=== PATIENT | female | born 1955 | race Asian ===

== ENCOUNTER → 2020-09-07 10:38 | Outpatient (CLI) | payer OTHER, SELFPAY ==
--- NOTE | 2020-09-07 | DI.MG.S_ITS ---
BILATERAL DIGITAL SCREENING MAMMOGRAM 3D/2D WITH CAD: 09/07/2020 CLINICAL: Routine screening. Family history of breast cancer. Comparison is made to exams dated: 12/03/2018 mammogram and 11/20/2017 mammogram - [facility]. The tissue of both breasts is heterogeneously dense. This may lower the sensitivity of mammography. Current study was also evaluated with a Computer Aided Detection (CAD) system. No significant masses, calcifications, or other findings are seen in either breast. There has been no significant interval change. IMPRESSION: NEGATIVE There is no mammographic evidence of malignancy. A 1 year screening mammogram is recommended. This exam was interpreted at Station ID: [id number]. NOTE: For mammograms, a report in lay terms will be sent to the patient. Approximately 15% of breast malignancies will not be visualized mammographically. In the management of a palpable breast mass, a negative mammogram must not discourage biopsy of a clinically suspicious lesion. Electronically Signed By: Santy delacruz/homar:09/07/2020 13:04:26 letter sent: Normal Exam ACR BI-RADS Category 1: Negative [id number]
--- NOTE | 2020-09-07 | DI.MRI.S_ITS ---
PROCEDURE: MR KNEE LT WO CON INDICATIONS: OSTEOARTHRITIS LEFT KNEE TECHNIQUE: Noncontrast sagittal PD fast spin echo and T2 fast spin echo with fat saturation, sagittal 3-D FLASH with fat saturation; coronal T1 spin echo and PD fast spin echo with fat saturation, and axial PD fast spin echo with fat saturation through the knee. COMPARISON: None. FINDINGS: Image quality: Excellent. Menisci: Medial meniscal tear with macerated appearance of the posterior horn and body, with partial extrusion. Lateral meniscus intact. Cruciate ligaments: Marked thickening and intrasubstance signal changes of the anterior cruciate ligament although some intact fibers are present. This could represent partial rupture/sprain versus chronic mucoid degeneration. Posterior cruciate ligament appears intact. Medial structures: There is medial bowing of the medial collateral ligament, with mild internal signal changes and no complete rupture. There is adjacent soft tissue edema. The appearance could reflect reactive changes to medial compartment pathology, versus low-grade sprain of the MCL. Pes anserinus tendons appear grossly unremarkable. Semimembranosus tendon appears intact. Lateral structures: The lateral collateral ligament intact. Biceps femoris tendon appears intact. Popliteus tendon grossly unremarkable. Iliotibial band appears intact. Anterior structures: Quadriceps tendon intact. Marked thickening of the lateral patellofemoral ligament, with low signal appearance suggesting chronic age sprain. Patellar tendon appears intact. Hoffa's fat pad unremarkable. Bones and cartilage: No focal marrow contusion or discrete low signal fracture line. Within the medial compartment, full-thickness loss of the femoral and tibial articular cartilage. There is extensive subchondral cystic change and marrow edema. Within the lateral compartment, diffuse surface fraying of the femoral and tibial cartilage without definite focal defect. Within the patellofemoral compartment, near full thickness loss of patellar cartilage, with subchondral cystic change and edema involving the lateral facet. There is also diffuse partial-thickness loss of the femoral trochlear cartilage. Joint space: Small joint effusion. No Hdz's cyst. No specific evidence of intra-articular loose body. IMPRESSION: Macerated ill-defined tear of the medial meniscus posterior horn and body with partial extrusion. Thickening and signal changes involving the ACL, probably representing chronic mucoid degeneration versus partial rupture/sprain. Chronic appearing sprain of the lateral patellofemoral ligament. Severe degenerative joint disease as above Small joint effusion. Dictated by: Med Posada M.D. on 09/07/2020 at 12:14 Approved by: Med Posada M.D. on 09/07/2020 at 12:54
== END ==
PROVIDERS: Referring Provider Internal Medicine; Visit Provider Internal Medicine
DX: Z12.31 Encounter for screening mammogram for malignant neoplasm of breast (principal); Z80.3 Family history of malignant neoplasm of breast; M17.12 Unilateral primary osteoarthritis, left knee; S83.242A Other tear of medial meniscus, current injury, left knee, initial encounter; S76.112A Strain of left quadriceps muscle, fascia and tendon, initial encounter; M25.462 Effusion, left knee
CPT/HCPCS: 73721; 77063; 77067

== ENCOUNTER 2021-11-14 07:11 | Day surgery (SDC) | payer OTHER, SELFPAY ==
--- NOTE | 2021-11-14 | PATH_ITS ---
[facility] Accession Number: [id number] . 01 Material submitted: . PART A: colon - TRANSVERSE POLYP PART B: sigmoid colon - SIGMOID POLYP . 02 Diagnosis: A. Transverse Colon, Polyp, Biopsy: Tubular adenoma, 2 fragments. . B. Sigmoid Colon, Polyp, Biopsy: Tubular adenoma, 2 fragments. MRV 11/19/2021 1244 Local . 02 Electronically signed: . Simi Chávez MD, Pathologist NPI- [id number] . 01 Gross description: . Part A: TRANSVERSE POLYP: Received in formalin are 2 fragment(s) of fuller, soft tissue measuring 0.3 x 0.3 x 0.2 cm to 0.3 x 0.2 x 0.2 cm submitted entirely in 1 cassette(s) Part B: SIGMOID POLYP: Received in formalin are 2 fragment(s) of fuller, soft tissue measuring 0.7 x 0.4 x 0.3 cm to 0.5 x 0.6 x 0.3 cm submitted entirely in 1 cassette(s) /CPE 11/15/2021 0750 Local . 02 Pathologist provided ICD-10: D12.3, D12.5 . 02 CPT . 957646, 201578 Specimen Comment: A courtesy copy of this report has been sent to Pathology Performed at: 01 [facility] [address] [facility], [place], [place] [id number] MD Austin Flanagan MD Phone: [phone] Performed at: 02 [facility] [address] [place], [place] [id number] MD Simi Chávez MD Phone: [phone]
[2021-11-14 07:51] LABS: COVID19 -Nasal RAPID Negative (Negative)
[2021-11-14 07:58] VITALS: BMI 24.1
[2021-11-14 08:14] VITALS: BP 138/66; PULSE 57; RESP 14; TEMP 36.6; O2SAT 100
[2021-11-14] MEDS: LACTATED RINGERS 1,000 ML 84 ML IV (08:18)
--- NOTE | 2021-11-14 08:23 | PM.HP.1 ---
History of Present Illness History of Present Illness Date Patient Seen: 11/14/21 Chief complaint: SCREENING COLONOSCOPY Narrative: Screening colonoscopy. Last colonoscopy 10 years ago. No symptoms Patient History Medical History (Updated 11/14/21 @ 07:57 by Oriana Nguyen RN) Diabetes mellitus, type II Hypercholesteremia Hypertension Surgical History (Updated 11/14/21 @ 07:58 by Oriana Nguyen RN) History of hysterectomy Hx laparoscopic cholecystectomy Family & Social History Social History: household members spouse Tobacco & Substance use: Smoking Status Never smoker alcohol intake never Substance Use Type does not use Meds Home Medications and Allergies Home Medications Medication Instructions Recorded Confirmed Type aspirin 81 mg tablet,delayed 81 mg PO DAILY 11/14/21 11/14/21 History release calcium carb-ergocalciferol (vit 1 tab PO BID 11/14/21 11/14/21 History D2) 600 mg calcium-200 unit tablet glipizide 5 mg tablet 5 mg PO DAILY 11/14/21 11/14/21 History levothyroxine 112 mcg tablet 112 mcg PO DAILY 11/14/21 11/14/21 History (Synthroid) lisinopril 2.5 mg tablet 2.5 mg PO DAILY 11/14/21 11/14/21 History loratadine 10 mg tablet 10 mg PO DAILY PRN 11/14/21 11/14/21 History simvastatin 20 mg tablet 20 mg PO BEDTIME 11/14/21 11/14/21 History sitagliptin 50 mg-metformin 1,000 1 tab PO BID 11/14/21 11/14/21 History mg tablet (Janumet) Allergies Allergy/AdvReac Type Severity Reaction Status Date / Time erythromycin base Allergy Mild Hives Verified 11/14/21 07:50 Exam Vital Signs (past 8 hours): - 11/14/21 08:14 Temperature 97.8 F Pulse Rate 57 L Respiratory Rate 14 Blood Pressure 138/66 Pulse Oximetry 100 Oxygen Delivery Method Room Air Narrative Exam Narrative: Oropharynx free of lesions Chest clear to auscultation percussion Cardiac exam reveals no S3 or murmur Objective Labs Labs: Laboratory Results - last 24 hr 11/14/21 07:18 SARS-CoV-2 (PCR) Negative Assessment & Plan Assessment & Plan narrative: Need for screening colonoscopy. Risks, benefits, alternatives have been explained. Further recommendation will follow the results of this study. Time Spent With Patient Critical Care time: I spent a total of [] minutes of critical care time on this patient's care today; this time is exclusive of procedural time.
--- NOTE | 2021-11-14 08:24 | P.OP.COLON_ITS ---
Operative Date/Time/Diagnoses Date of procedure: 11/14/21 Pre-op diagnosis: See indication and findings Procedure & Clinicians Study performed: Colonoscopy Indications: Screening Surgeon: Luana Orellana Procedure Notes Procedure in detail: After informed consent was obtained the patient was placed in left lateral d ecubitus position. The video colonoscope was introduced the rectum slowly advanced cecum. On slow withdrawal mucosa was carefully examined. Preparation was good. The scope was removed. The patient tolerated the procedure well. Blood loss none Complications none Sedation mac Findings 1. 6 mm polyp in the proximal transverse colon cold snared and removed completely 2. 7 mm sessile polyp in the sigmoid colon. Attempts to cold snare were incomplete and therefore this was hooked up to cautery and specimen resected and retrieved. 3. Scattered rare diverticular disease 4. Otherwise negative colonoscopy to cecum Patient should have follow-up colonoscopy based on the pathology but probably will be 5 years.
[2021-11-14 08:56] VITALS: BP 94/49; PULSE 48; RESP 12; TEMP 36.1; O2SAT 97
[2021-11-14 09:01] VITALS: BP 115/56; PULSE 50; RESP 12; O2SAT 97
[2021-11-14 09:06] VITALS: BP 125/58; PULSE 50; RESP 16; O2SAT 100
[2021-11-14 09:11] VITALS: BP 125/55; PULSE 51; RESP 14; TEMP 36.8; O2SAT 100
[2021-11-14 09:16] VITALS: BP 144/63; PULSE 50; PULSE 51; RESP 14; RESP 15; O2SAT 100
--- NOTE | 2021-11-14 09:32 | SUR.PHASEII ---
discharge instructions reviewed with pt and she verbalized understanding.
== END 2021-11-14 09:45 | disposition home or self-care (01) ==
PROVIDERS: PCP Internal Medicine; Referring Provider Internal Medicine Gastroenterology; Visit Provider Internal Medicine Gastroenterology
PROC: 0DJD8ZZ Inspection of Lower Intestinal Tract, Via Natural or Artificial Opening Endoscopic (ICD-10-PCS; CPT 45378; principal; 2021-11-14 08:30)
DX: Z12.11 Encounter for screening for malignant neoplasm of colon (principal); E11.9 Type 2 diabetes mellitus without complications; Z20.822 Contact with and (suspected) exposure to COVID-19; Z79.84 Long term (current) use of oral hypoglycemic drugs; I10 Essential (primary) hypertension; K57.30 Diverticulosis of large intestine without perforation or abscess without bleeding; D12.3 Benign neoplasm of transverse colon; D12.5 Benign neoplasm of sigmoid colon
CPT/HCPCS: 45385; 45384; 87635; C9803; J2704

== ENCOUNTER 2022-09-03 22:10 | Emergency (ER) | payer MEDICARE, OTHER, SELFPAY ==
[2022-09-03 22:23] VITALS: BP 180/72; PULSE 79; RESP 19; TEMP 36.6; O2SAT 98; BMI 23.2
[2022-09-04] VITALS (9 sets, daily range): BP systolic 146–197; BP diastolic 66–76; PULSE 57–68; O2SAT 97–100
--- NOTE | 2022-09-04 03:21 | ED.BACK ---
HPI - Back Pain/Injury General Chief Complaint: Back Pain/Injury Stated Complaint: was on couch, started shaking Time Seen by Provider: 09/04/22 03:21 Source: patient History of Present Illness HPI Narrative: 67-year-old woman with a history of diabetes, hypertension, hyperlipidemia, hypothyroidism who presents with low back and pelvic pain that has been bothering her for well over a week. She was seen at [facility] on August 18 with complaints of urinary frequency. She is post hysterectomy, describes no dysuria or flank pain. No nausea vomiting or diarrhea. With the emergency room visit on the she was found to be hyponatremic with a sodium of 124. She does note that she was exercising and drinking very large volumes of water. She was placed on sodium tablets and followed up with her primary care doctor. Sodium had improved into the 130 range. He felt that her caffeine consumption in the form of coffee and large volumes of water were contributing to her urinary frequency and recommended that she cut down on total volumes and placed her on Detrol. She did this but is still having significant low back pain radiating into her pelvis. This evening it was so bad that she was actually spasming secondary to the pain. She ended up taking 500 mg of Naprosyn and is found that this is significantly relieved her pain by the time of my exam. She reports no recent trauma and no prior issues with chronic back pain. Related Data Home Medications Medication Instructions Recorded Confirmed aspirin 81 mg tablet,delayed 81 mg PO DAILY 11/14/21 09/03/22 release calcium carb-ergocalciferol (vit 1 tab PO BID 11/14/21 09/03/22 D2) 600 mg calcium-200 unit tablet levothyroxine 112 mcg tablet 112 mcg PO DAILY 11/14/21 09/03/22 (Synthroid) losartan 25 mg tablet 12.5 mg PO DAILY 09/03/22 09/03/22 rosuvastatin 20 mg tablet 20 mg PO BEDTIME 09/03/22 09/03/22 sitagliptin phosphate 50 1,000 tab PO BID 09/03/22 09/03/22 mg-metformin 1,000 mg tablet (Janumet) Allergies Allergy/AdvReac Type Severity Reaction Status Date / Time erythromycin base Allergy Mild Hives Verified 09/03/22 22:27 Review of Systems Review of Systems Narrative: Remainder of complete review of systems is otherwise unremarkable except for that included in the HPI. Patient History Medical History (Updated 09/04/22 @ 06:38 by Lizbeth Bui MD) Diabetes mellitus, type II Hypercholesteremia Hypertension Surgical History (Updated 11/14/21 @ 07:58 by Oriana Nguyen RN) History of hysterectomy Hx laparoscopic cholecystectomy Social History household members: spouse Smoking Status: Never smoker alcohol intake: never Smoking Status: Never smoker alcohol intake frequency: other Substance Use Type: does not use Exam Initial Vital Signs Initial Vital Signs: Vital Signs Temperature 98 F 09/03/22 22:23 Pulse Rate 79 09/03/22 22:23 Respiratory Rate 19 09/03/22 22:23 Blood Pressure 180/72 H 09/03/22 22:23 Pulse Oximetry 98 09/03/22 22:23 Oxygen Delivery Method 09/03/22 22:23 General: Healthy appearing, in no acute distress. Able to give a complete and coherent history. Well-nourished well-developed HEENT: Moist mucous membranes, normal sclera with reactive pupils, Respiratory: Lungs are clear to auscultation, no wheezing no rales no rhonchi. Full and symmetrical air movement Cardiac: Regular rate and rhythm no murmurs no bruits Abdomen: Soft, nontender, good bowel tones, no flank pain. Skin: Warm and dry, no rashes Neurologic: Grossly neurologically intact with no obvious asymmetries or abnormalities Extremities: No trauma, well perfused Psych: Cooperative, appropriate insight and affect Course Orders Ordered: ED Orders 09/04/22 03:38 Urine Culture Stat Urine Microscopic Stat 09/04/22 03:53 Complete Blood Count AUTO DIFF Stat Comprehensive Metabolic Panel Stat Vital Signs Vital signs: Vital Signs - 8 hr 09/04/22 01:54 09/04/22 01:55 09/04/22 01:55 Pulse Rate 66 Blood Pressure 197/76 H Pulse Oximetry 97 100 Oxygen Delivery Method Room Air Room Air 09/04/22 02:00 09/04/22 02:30 09/04/22 03:00 Pulse Rate 61 57 L 59 L Blood Pressure Pulse Oximetry 100 99 99 Oxygen Delivery Method Room Air Room Air 09/04/22 03:30 09/04/22 03:31 09/04/22 03:49 Pulse Rate 68 65 61 Blood Pressure Pulse Oximetry 100 100 100 Oxygen Delivery Method Room Air Room Air 09/04/22 03:50 09/04/22 03:50 Pulse Rate 59 L Blood Pressure 146/66 H Pulse Oximetry Oxygen Delivery Method MDM - Back Pain/Injury Lab Data 09/04/22 03:53 09/04/22 03:53 Labs: Lab Results 09/04/22 09/04/22 09/04/22 Range/Units 03:38 03:53 03:53 WBC 9.8 (4.5-11.0) X10^3/uL RBC 4.40 (4.0-5.2) X10^6/uL Hgb 12.5 (12.0-16.0) g/dL Hct 37.3 (36-46) % MCV 84.8 (80-100) fL MCH 28.3 (26-34) PG MCHC 33.4 (30-36) % RDW 13.3 (11.6-14.8) % Plt Count 267 (150-400) X10^3/uL Neut % (Auto) 62.0 (50-75) % Lymph % (Auto) 26.9 (25-40) % [place]imer % (Auto) 6.9 (3-14) % Eos % (Auto) 3.5 (2-4) % Baso % (Auto) 0.7 (0-2) % Neut # (Auto) 6100 (6670-4252) /uL Lymph # (Auto) 2700 (4778-0750) /uL Larimer # (Auto) 700 (0-900) /uL Eos # (Auto) 300 (0-450) /uL Baso # (Auto) 100 (0-100) /uL Sodium 137 (137-145) mmol/L Potassium 4.1 (3.4-5.1) mmol/L Chloride 95 L (98-107) mmol/L Carbon Dioxide 31 (22-32) mmol/L BUN 14 (7-17) mg/dL Creatinine 0.64 (0.52-1.04) mg/dL Estimated GFR > 60 (>60) mL/min BUN/Creatinine Ratio 21.9 (6-22) Glucose 166 H (80-110) mg/dL Calcium 9.7 (8.4-10.2) mg/dL Total Bilirubin 0.3 (0.2-1.3) mg/dL AST 30 (14-36) IU/L ALT 30 (<35) IU/L Alkaline Phosphatase 95 (38-126) U/L Total Protein 8.3 H (6.3-8.2) g/dL Albumin 4.3 (3.5-5.0) g/dL Globulin 4.0 (1.7-4.1) g/dL Albumin/Globulin Ratio 1.1 (1.0-2.8) Urine RBC 0-1/hpf (0-5/HPF) Urine WBC 1-5/hpf (0-5/HPF) Ur Squamous Epith Cells 5-10 /hpf H (0-5/HPF) Urine Bacteria Few (2-10) H (None) Urine Mucus 1+ H (Negative) Ur Culture Indicated? Specimen cultured Urine Dip Bedside Urine Glucose Negative Bedside Urine Bilirubin - Negative Bedside Urine Ketone - Negative Urine Specific Rock 1.015 Bedside Urine Occult Blood - Negative Bedside Urine pH 6.0 Bedside Urine Protein - Negative Bedside Urine Urobilinogen - Negative Bedside Urine Nitrite - Negative Bedside Urine Leukocytes +/- 15 Esterase MDM Narrative Medical decision making narrative: CC: Back in pelvic pain: acute exacerbation of prior diagnosis with no definitive diagnosis and uncertain prognosis Complicating co-morbidities: Diabetes, prior history of bladder spasm, large volume water and coffee consumption Corroborating data: Data collected from: patient, Medical records reviewed: Recent ER notes from [facility] are reviewed Differential considered: Acute back pain, interstitial cystitis, urinary tract infection, intra-abdominal infection. She does not have a uterus so pelvic inflammatory disease or uterine pathology is far less likely. I do not suspect acute appendicitis or diverticulitis. Complication of medications perhaps causing increased spasm. Exam documented above, pertinent findings include: Benign exam with no significant abdominal pain and back pain controlled after taking Naprosyn Lab Test results independently reviewed as above. Pertinent findings: Normal CBC Normal chemistries Re-evaluations: On re-evaluation, patient notes that the Naprosyn does continue to help. Reviewed all findings of lab work. Also discussed the possibility of interstitial cystitis as an explanation for her pelvic pain and bladder discomfort. I suggested that she continue with the Detrol as prescribed but when she sees her primary provider the next visit if she is still having symptoms to at least bring up the idea of interstitial cystitis and see if he feels like a Urology consult may be of any benefit. Her urine had leukocytes and squamous cells will be cultured but at this time I do not think that she has a bladder infection and antibiotics will not be prescribed. Questions are answered and she is safe for discharge home Disposition: see below, along with detailed discharge instructions that have been reviewed with patient as well as indications for ED re-evaluation and additional outpatient follow up Discharge Plan Departure Patient Disposition: Home Clinical Impression: Bladder spasm Strain of lumbar region Qualifiers: Encounter type: initial encounter Qualified Code(s): S39.012A - Strain of muscle, fascia and tendon of lower back, initial encounter Instructions: DI for Interstitial Cystitis, DI for Back Strain or Sprain Activity Restrictions/Additional Instructions: Thank you for coming in this evening Your blood work was quite reassuring. Your urine has been cultured and if it does look like you have a bladder infection we will contact you with antibiotics. I do not think that you have a bladder infection at this time. I think that the back pain is mild low back strain and using Naprosyn is going to be the most appropriate treatment for this. If it continues to worsen I would encourage you to follow up with your primary care doctor. Regarding the bladder spasms, I believe Detrol is very appropriate 1st step. Possibility of interstitial cystitis did cross my mind. If you are continuing to have pelvic cramping I would encourage you to discuss interstitial cystitis is a diagnosis with your regular doctor. If you find that you are getting worse or develop any new symptoms, please feel free to return to the emergency department for further evaluation. Prescriptions: No Action losartan 25 mg tablet 12.5 mg PO DAILY rosuvastatin 20 mg tablet 20 mg PO BEDTIME Janumet 50-1,000 mg tablet 1,000 tab PO BID aspirin [Aspir-81] 81 mg Tablet,Delayed Release (Dr/Ec) 81 mg PO DAILY Calcium + Vitamin D 600 mg calcium- 200 unit Tablet 1 tab PO BID levothyroxine [Synthroid] 112 mcg Tablet 112 mcg PO DAILY Referrals: Diana Puente MD [Primary Care Provider] - Stand Alone Forms: Patient Portal/API
[2022-09-04 04:04] LABS: Add Manual Diff / Slide Review NO; Basophils Absolute Auto 100 /uL (0-100); Basophils Percent Auto 0.7 % (0-2); Eosinophils Absolute Auto 300 /uL (0-450); Eosinophils Percent Auto 3.5 % (2-4); Hematocrit 37.3 % (36-46); Hemoglobin 12.5 g/dL (12.0-16.0); Lymphocytes Absolute Auto 2700 /uL (1100-4500); Lymphocytes Percent Auto 26.9 % (25-40); Mean Corpuscular HGB Conc 33.4 % (30-36); Mean Corpuscular Hemoglobin 28.3 PG (26-34); Mean Corpuscular Volume 84.8 fL (80-100); Monocytes Absolute Auto 700 /uL (0-900); Monocytes Percent Auto 6.9 % (3-14); Neutrophils Absolute Auto 6100 /uL (1500-7000); Platelet Count 267 X10^3/uL (150-400); Red Cell Distribution Width 13.3 % (11.6-14.8); White Blood Cell Count 9.8 X10^3/uL (4.5-11.0)
[2022-09-04 04:16] LABS: Alanine Aminotransferase 30 IU/L (<35); Albumin 4.3 g/dL (3.5-5.0); Albumin Globulin Ratio 1.1 (1.0-2.8); Alkaline Phosphatase 95 U/L (38-126); Aspartate Aminotransferase 30 IU/L (14-36); BUN Creatinine Ratio 21.9 (6-22); Bilirubin Total 0.3 mg/dL (0.2-1.3); Blood Urea Nitrogen 14 mg/dL (7-17); Calcium 9.7 mg/dL (8.4-10.2); Carbon Dioxide 31 mmol/L (22-32); Chloride 95 mmol/L (98-107); Estimated Glomerular Filt Rate > 60 mL/min (>60); Glucose 166 mg/dL (80-110); HEMOLYSIS < 15 (0-50); Potassium 4.1 mmol/L (3.4-5.1); Sodium 137 mmol/L (137-145); Total Protein 8.3 g/dL (6.3-8.2)
[2022-09-04 05:14] LABS: RBC Urine 0-1/HPF (0-5/HPF); Squamous Epithelial Cell Urine 5-10 /HPF (0-5/HPF); WBC Urine 1-5/HPF (0-5/HPF)
[2022-09-04 05:15] LABS: Bacteria Urine Few (2-10); Culture Indicated Urine Specimen Cultured; Mucus Urine 1+ (Negative)
== END 2022-09-04 06:56 | disposition home or self-care (01) ==
PROVIDERS: Emergency Provider Emergency Medicine; PCP Internal Medicine
DX: S39.012A Strain of muscle, fascia and tendon of lower back, initial encounter (principal); X58.XXXA Exposure to other specified factors, initial encounter; N32.89 Other specified disorders of bladder
CPT/HCPCS: 36415; 80053; 81003; 81015; 85025; 87086; 99283

== ENCOUNTER 2023-04-13 18:22 | Emergency (ER) | payer MEDICARE, OTHER, SELFPAY ==
[2023-04-13] VITALS (12 sets, daily range): BP systolic 135–181; BP diastolic 63–77; PULSE 53–62; RESP 16–24; TEMP 36.2; O2SAT 98–100; BMI 23.3
--- NOTE | 2023-04-13 18:44 | ED_ITS ---
HPI - SOB/Dyspnea General Chief Complaint: Shortness of Breath/Dyspnea Stated Complaint: pain when walking in knee and lower leg Time Seen by Provider: 04/13/23 18:41 History of Present Illness HPI Narrative: Patient is a 68-year-old female history of hypothyroid, diabetes hyper tension presenting today with shortness of breath. She reports that she just traveled to [place] and for the last couple days she is had increasing shortness of breath with exertion. She denies any orthopnea he is complaining of some left leg pain worse with walking. No fever chills or cough. No abdominal pain nausea vomiting. She reports that she took 3 aspirin yesterday he traveled on the airplane but she only took 2 today. No history of blood clots. She actually reports that it started 3 days ago when she was carrying heavy suitcase through the airport. It is not reproducible with palpation or moving an arm. This has happened to her before when she got nebulizer. She reports that she actually injured her left knee in 2018 it is obviously swollen. However she says that she walked a lot on vacation she went up and downstairs she does [place] she just having increasing pain now that she is gotten back from her trip. Related Data Home Medications Medication Instructions Recorded Confirmed aspirin 81 mg tablet,delayed 81 mg PO DAILY 11/14/21 09/03/22 release calcium carb-ergocalciferol (vit 1 tab PO BID 11/14/21 09/03/22 D2) 600 mg calcium-200 unit tablet levothyroxine 112 mcg tablet 112 mcg PO DAILY 11/14/21 09/03/22 (Synthroid) losartan 25 mg tablet 12.5 mg PO DAILY 09/03/22 09/03/22 rosuvastatin 20 mg tablet 20 mg PO BEDTIME 09/03/22 09/03/22 sitagliptin phosphate 50 1,000 tab PO BID 09/03/22 09/03/22 mg-metformin 1,000 mg tablet (Janumet) Allergies Allergy/AdvReac Type Severity Reaction Status Date / Time erythromycin base Allergy Mild Hives Verified 09/03/22 22:27 Review of Systems Review of Systems ROS Unobtainable: All systems reviewed & are unremarkable except as noted in HPI and below Patient History Medical History Diabetes mellitus, type II Hypercholesteremia Hypertension Surgical History History of hysterectomy Hx laparoscopic cholecystectomy Social History household members: spouse Smoking Status: Never smoker alcohol intake: never Smoking Status: Never smoker alcohol intake frequency: other Substance Use Type: does not use Exam Initial Vital Signs Initial Vital Signs: Vital Signs Temperature 97.2 F L 04/13/23 18:28 Pulse Rate 62 04/13/23 18:28 Respiratory Rate 16 04/13/23 18:28 Blood Pressure 181/77 H 04/13/23 18:28 Pulse Oximetry 100 04/13/23 18:28 Oxygen Delivery Method Room Air 04/13/23 18:28 GENERAL: Alert pleasant 68-year-old female and in no acute distress. HEENT: Head atraumatic,EOMI, pupils reactive, face symmetric, moist mucous membranes CARDIOVASCULAR: Regular rate and rhythm without murmurs, rubs or gallops. RESPIRATORY: Breath sounds equal bilaterally, no wheezes rales or rhonchi. ABDOMEN: Soft, nontender. Normoactive bowel sounds all 4 quadrants. No guarding or rebound. EXTREMITIES: Normal range of motion, no clubbing or edema. Neurovascularly intact Left leg calf tender no significant swelling or erythema distal pedal pulse present. Knee is mildly swollen full range of motion stable right leg is nontender NEUROLOGICAL: Alert and oriented x4.Normal gait and speech. SKIN: Warm, dry, no laceration, no petechiae, no rashes or lesions. Course Orders Ordered: ED Orders 04/13/23 18:37 EKG-12 Lead Stat 04/13/23 18:40 BNP [NT-proBNP (BNP-Adult 18+)] Stat Complete Blood Count AUTO DIFF Stat Comprehensive Metabolic Panel Stat Lipase Stat Magnesium Stat PTT Partial Thromboplastin Sheldon Stat Prothrombin Time INR Stat Troponin & CK Cardiac Panel Stat 04/13/23 18:52 US periph venous low extrem lt Stat 04/13/23 18:54 CT angio chest PE protocol Stat 04/13/23 20:05 COVID19 -Nasal RAPID Stat Discontinued Medications Albuterol (Albuterol Hfa Prepack) 1 box MISC SEEINSTR ONE Stop: 04/13/23 22:03 Last Admin: 09/03/23 22:08 Dose: 1 box Documented By: Vital Signs Vital signs: Vital Signs - 8 hr 04/13/23 18:28 04/13/23 18:38 04/13/23 18:50 Temperature 97.2 F L Pulse Rate 62 62 Respiratory Rate 16 21 Blood Pressure 181/77 H 164/67 H Pulse Oximetry 100 Oxygen Delivery Method Room Air 04/13/23 18:50 04/13/23 19:00 04/13/23 19:30 Temperature Pulse Rate 58 L 57 L 54 L Respiratory Rate 21 16 Blood Pressure Pulse Oximetry 100 100 100 Oxygen Delivery Method Room Air 04/13/23 20:00 04/13/23 20:14 04/13/23 20:14 Temperature Pulse Rate 53 L 58 L Respiratory Rate 18 20 Blood Pressure 149/67 H Pulse Oximetry 98 100 Oxygen Delivery Method 04/13/23 20:30 04/13/23 20:31 04/13/23 20:31 Temperature Pulse Rate 56 L 56 L Respiratory Rate 22 18 Blood Pressure 137/63 Pulse Oximetry 100 100 Oxygen Delivery Method 04/13/23 21:00 04/13/23 21:00 04/13/23 21:30 Temperature Pulse Rate 56 L Respiratory Rate 24 Blood Pressure 135/64 140/63 Pulse Oximetry 100 Oxygen Delivery Method 04/13/23 21:30 04/13/23 22:00 04/13/23 22:00 Temperature Pulse Rate 54 L 53 L Respiratory Rate 23 Blood Pressure 155/67 H Pulse Oximetry 100 100 Oxygen Delivery Method MDM - SOB/Dyspnea Lab Data 04/13/23 18:40 04/13/23 18:40 Labs: Lab Results 04/13/23 04/13/23 04/13/23 Range/Units 18:40 18:40 18:40 WBC 10.7 (4.5-11.0) X10^3/uL RBC 4.29 (4.0-5.2) X10^6/uL Hgb 12.3 (12.0-16.0) g/dL Hct 35.6 L (36-46) % MCV 83.0 (80-100) fL MCH 28.7 (26-34) PG MCHC 34.6 (30-36) % RDW 14.0 (11.6-14.8) % Plt Count 281 (150-400) X10^3/uL Neut % (Auto) 63.9 (50-75) % Lymph % (Auto) 26.5 (25-40) % [place] % (Auto) 5.7 (3-14) % Eos % (Auto) 3.0 (2-4) % Baso % (Auto) 0.9 (0-2) % Neut # (Auto) 6900 (5338-9392) /uL Lymph # (Auto) 2800 (0697-8339) /uL [place] # (Auto) 600 (0-900) /uL Eos # (Auto) 300 (0-450) /uL Baso # (Auto) 100 (0-100) /uL PT 10.6 (10.1-12.7) SECONDS INR 0.9 (0.9-1.3) APTT 32 (26-36) SECONDS Sodium 130 L (137-145) mmol/L Potassium 3.9 (3.4-5.1) mmol/L Chloride 100 (98-107) mmol/L Carbon Dioxide 20 L (22-32) mmol/L BUN 10 (7-17) mg/dL Creatinine 0.66 (0.52-1.04) mg/dL Estimated GFR > 60 (>60) mL/min BUN/Creatinine Ratio 15.2 (6-22) Glucose 236 H (80-110) mg/dL Calcium 9.3 (8.4-10.2) mg/dL Magnesium 1.9 (1.6-2.3) mg/dL Total Bilirubin 0.6 (0.2-1.3) mg/dL AST 27 (14-36) IU/L ALT 23 (<35) IU/L Alkaline Phosphatase 85 (38-126) U/L Total Creatine Kinase 112 (30-135) U/L Troponin I < 0.012 (0.01-0.034) ng/mL NT-Pro-B Natriuret Pep (<125) pg/mL Total Protein 7.9 (6.3-8.2) g/dL Albumin 4.2 (3.5-5.0) g/dL Globulin 3.7 (1.7-4.1) g/dL Albumin/Globulin Ratio 1.1 (1.0-2.8) Lipase 178 (23-300) U/L SARS-CoV-2 (PCR) (Negative) 04/13/23 04/13/23 Range/Units 18:40 20:05 WBC (4.5-11.0) X10^3/uL RBC (4.0-5.2) X10^6/uL Hgb (12.0-16.0) g/dL Hct (36-46) % MCV (80-100) fL MCH (26-34) PG MCHC (30-36) % RDW (11.6-14.8) % Plt Count (150-400) X10^3/uL Neut % (Auto) (50-75) % Lymph % (Auto) (25-40) % [place] % (Auto) (3-14) % Eos % (Auto) (2-4) % Baso % (Auto) (0-2) % Neut # (Auto) (8800-8598) /uL Lymph # (Auto) (1573-3667) /uL [place] # (Auto) (0-900) /uL Eos # (Auto) (0-450) /uL Baso # (Auto) (0-100) /uL PT (10.1-12.7) SECONDS INR (0.9-1.3) APTT (26-36) SECONDS Sodium (137-145) mmol/L Potassium (3.4-5.1) mmol/L Chloride (98-107) mmol/L Carbon Dioxide (22-32) mmol/L BUN (7-17) mg/dL Creatinine (0.52-1.04) mg/dL Estimated GFR (>60) mL/min BUN/Creatinine Ratio (6-22) Glucose (80-110) mg/dL Calcium (8.4-10.2) mg/dL Magnesium (1.6-2.3) mg/dL Total Bilirubin (0.2-1.3) mg/dL AST (14-36) IU/L ALT (<35) IU/L Alkaline Phosphatase (38-126) U/L Total Creatine Kinase (30-135) U/L Troponin I (0.01-0.034) ng/mL NT-Pro-B Natriuret Pep 113 (<125) pg/mL Total Protein (6.3-8.2) g/dL Albumin (3.5-5.0) g/dL Globulin (1.7-4.1) g/dL Albumin/Globulin Ratio (1.0-2.8) Lipase (23-300) U/L SARS-CoV-2 (PCR) Negative (Negative) Imaging Data US - DVT: Radiologist's Impression: PROCEDURE:? [facility] VENOUS LOW EXTREM LT ? INDICATIONS:? pain after travel ? TECHNIQUE:? Real-time imaging, as well as color and pulse Doppler interrogation, were performed of the lower extremity deep veins from the inguinal ligament to the popliteal fossa, with documentation of the visualized calf veins.? ? COMPARISON:? None. ? FINDINGS:? The common femoral, femoral, popliteal, and the visualized calf veins are normally compressible, and free of intraluminal thrombus.? Color and pulse Doppler demonstrate normal phasic intraluminal flow.? There is normal augmentation response to distal compression maneuver.? ? ? IMPRESSION:? No left lower extremity DVT.? ? Dictated by: Irvin Corona M.D. on 04/13/2023 at 19:18 ? ? CT scan - chest: Radiologist's Impression: PROCEDURE:? CT ANGIO CHEST PE PROTOCOL ? INDICATIONS:? Shortness of breath after travel ? TECHNIQUE:? After the administration of intravenous contrast, 2 mm thick sections acquired from the pulmonary apices to the posterior costophrenic angles.? 3-dimensional maximum intensity projection (MIP) coronal and sagittal reformats were then acquired through the thorax.? For radiation dose reduction, the following was used:? automated exposure con trol, adjustment of mA and/or kV according to patient size.? ? COMPARISON:? [facility], [facility] VENOUS LOW EXTREM LT, 04/13/2023, 18:59. ? FINDINGS:? Image quality:? Excellent.? ? Pulmonary arteries:? Pulmonary arteries are normal in size, and demonstrate no intraluminal filling defects to suggest central pulmonary embolism.? ? Lungs and pleura:? Lungs are clear.? No pleural effusions or pneumothorax.? Central and peripheral airways are patent.? ? Mediastinum:? Heart size is normal, without pericardial effusion.? Coronary artery calcifications.? No mediastinal or hilar adenopathy.? Thoracic aorta is normal in caliber and enhancement.? Esophagus is normal in caliber, without hiatal hernia.? ? Bones and chest wall:? No suspicious bony lesions.? Ribs and thoracic spine appear intact throughout.? No axillary or supraclavicular adenopathy.? ? Abdomen:? Visualized upper abdominal solid organs appear normal in the early arterial phase of enhancement.? ? IMPRESSION:? 1. No pulmonary embolism. ? 2. No acute airspace opacity. ? ? ? Dictated by: Irvin Corona M.D. on 04/13/2023 at 20:21 ? ? ECG Data Interpretation: Normal sinus rhythm rate 58 AR interval 190 QRS [address] changes no T- wave inversions MDM Narrative Medical decision making narrative: Patient 68-year-old female history of hypothyroid diabetes hyperlipidemia presen ts today with chest discomfort discomfort shortness of breath and leg pain. Concern for DVT and PE. Blood work has been reviewed no leukocytosis or anemia, sodium 130 bicar[address] angio does not show pulmonary embolism lower extremity ultrasound does not show a DVT. BNP and troponin are also negative. Patient requests a nebulizer treatment. She reports that last time this happened she got a nebulizer. She is not wheezing not hypoxic no conversational dyspnea. She is given albuterol inhaler with spacer Discharge Plan Departure Patient Disposition: Home Clinical Impression: Atypical chest pain Instructions: DI for Atypical Chest Pain Activity Restrictions/Additional Instructions: *You have been diagnosed with atypical chest pain *What to do: At this time no cause of your shortness of breath, I do recommend stress test. Please see your primary care provider. You have multiple risk factors. *Continue to take medications as directed Albuterol inhaler 1-2 puffs every 4-6 hours if needed for shortness of breath *Follow up with your primary care provider in 2-3 days or call [phone] *Return to ER if you should have increasing shortness of breath chest pain fever chills or any new, worsening or concerning symptoms Prescriptions: No Action losartan 25 mg tablet 12.5 mg PO DAILY rosuvastatin 20 mg tablet 20 mg PO BEDTIME Janumet 50-1,000 mg tablet 1,000 tab PO BID aspirin [Aspir-81] 81 mg Tablet,Delayed Release (Dr/Ec) 81 mg PO DAILY Calcium + Vitamin D 600 mg calcium- 200 unit Tablet 1 tab PO BID levothyroxine [Synthroid] 112 mcg Tablet 112 mcg PO DAILY Referrals: Miscellaneous,DoctorMD [Primary Care Provider] - Stand Alone Forms: Patient Portal/API
--- NOTE | 2023-04-13 18:52 | DI.US.S_ITS ---
PROCEDURE: US PERIPH VENOUS LOW EXTREM LT INDICATIONS: pain after travel TECHNIQUE: Real-time imaging, as well as color and pulse Doppler interrogation, were performed of the lower extremity deep veins from the inguinal ligament to the popliteal fossa, with documentation of the visualized calf veins. COMPARISON: None. FINDINGS: The common femoral, femoral, popliteal, and the visualized calf veins are normally compressible, and free of intraluminal thrombus. Color and pulse Doppler demonstrate normal phasic intraluminal flow. There is normal augmentation response to distal compression maneuver. IMPRESSION: No left lower extremity DVT. Dictated by: Irvin Corona M.D. on 04/13/2023 at 19:18 Approved by: Irvin Corona M.D. on 04/13/2023 at 19:19
--- NOTE | 2023-04-13 18:54 | DI.CT.S_ITS ---
PROCEDURE: CT ANGIO CHEST PE PROTOCOL INDICATIONS: Shortness of breath after travel TECHNIQUE: After the administration of intravenous contrast, 2 mm thick sections acquired from the pulmonary apices to the posterior costophrenic angles. 3-dimensional maximum intensity projection (MIP) coronal and sagittal reformats were then acquired through the thorax. For radiation dose reduction, the following was used: automated exposure control, adjustment of mA and/or kV according to patient size. COMPARISON: [facility], , PERIP VENOUS LOW EXTREM LT, 04/13/2023, 18:59. FINDINGS: Image quality: Excellent. Pulmonary arteries: Pulmonary arteries are normal in size, and demonstrate no intraluminal filling defects to suggest central pulmonary embolism. Lungs and pleura: Lungs are clear. No pleural effusions or pneumothorax. Central and peripheral airways are patent. Mediastinum: Heart size is normal, without pericardial effusion. Coronary artery calcifications. No mediastinal or hilar adenopathy. Thoracic aorta is normal in caliber and enhancement. Esophagus is normal in caliber, without hiatal hernia. Bones and chest wall: No suspicious bony lesions. Ribs and thoracic spine appear intact throughout. No axillary or supraclavicular adenopathy. Abdomen: Visualized upper abdominal solid organs appear normal in the early arterial phase of enhancement. IMPRESSION: 1. No pulmonary embolism. 2. No acute airspace opacity. Dictated by: Irvin Corona M.D. on 04/13/2023 at 20:21 Approved by: Irvin Corona M.D. on 04/13/2023 at 20:25
[2023-04-13 19:10] LABS: Add Manual Diff / Slide Review NO; Basophils Absolute Auto 100 /uL (0-100); Basophils Percent Auto 0.9 % (0-2); Eosinophils Absolute Auto 300 /uL (0-450); Hematocrit 35.6 % (36-46); Hemoglobin 12.3 g/dL (12.0-16.0); Lymphocytes Absolute Auto 2800 /uL (1100-4500); Lymphocytes Percent Auto 26.5 % (25-40); Mean Corpuscular HGB Conc 34.6 % (30-36); Mean Corpuscular Hemoglobin 28.7 PG (26-34); Monocytes Absolute Auto 600 /uL (0-900); Monocytes Percent Auto 5.7 % (3-14); Neutrophils Absolute Auto 6900 /uL (1500-7000); Neutrophils Percent Auto 63.9 % (50-75); Platelet Count 281 X10^3/uL (150-400); Red Blood Cell Count 4.29 X10^6/uL (4.0-5.2); White Blood Cell Count 10.7 X10^3/uL (4.5-11.0)
[2023-04-13 19:14] LABS: INR 0.9 (0.9-1.3); Prothrombin Time 10.6 SECONDS (10.1-12.7)
[2023-04-13 19:17] LABS: PTT Partial Thromboplastin Tim 32 SECONDS (26-36)
[2023-04-13 19:19] LABS: Alanine Aminotransferase 23 IU/L (<35); Albumin 4.2 g/dL (3.5-5.0); Albumin Globulin Ratio 1.1 (1.0-2.8); Alkaline Phosphatase 85 U/L (38-126); Aspartate Aminotransferase 27 IU/L (14-36); BUN Creatinine Ratio 15.2 (6-22); Bilirubin Total 0.6 mg/dL (0.2-1.3); Blood Urea Nitrogen 10 mg/dL (7-17); Calcium 9.3 mg/dL (8.4-10.2); Carbon Dioxide 20 mmol/L (22-32); Chloride 100 mmol/L (98-107); Creatine Kinase 112 U/L (30-135); Estimated Glomerular Filt Rate > 60 mL/min (>60); Globulin 3.7 g/dL (1.7-4.1); Glucose 236 mg/dL (80-110); HEMOLYSIS < 15 (0-50); Lipase 178 U/L (23-300); Magnesium 1.9 mg/dL (1.6-2.3); Potassium 3.9 mmol/L (3.4-5.1); Sodium 130 mmol/L (137-145); Total Protein 7.9 g/dL (6.3-8.2)
[2023-04-13 19:30] LABS: Troponin I < 0.012 ng/mL (0.01-0.034)
[2023-04-13 20:17] LABS: NT-proBNP (BNP-Adult 18+) 113 pg/mL (<125)
[2023-04-13 20:30] LABS: COVID19 -Nasal RAPID Negative (Negative)
[2023-04-13] MEDS: ALBUTEROL HFA PREPACK 1 BOX MISC (22:08)
== END 2023-04-13 22:15 | disposition home or self-care (01) ==
PROVIDERS: Emergency Provider Emergency Medicine
DX: R07.89 Other chest pain (principal); R06.02 Shortness of breath; R79.89 Other specified abnormal findings of blood chemistry; Z20.822 Contact with and (suspected) exposure to COVID-19
CPT/HCPCS: 36415; 71275; 80053; 82550; 83690; 83735; 83880; 84484; 85025; 85610; 85730; 87635; 93005; 93010; 93971; 99283; 99284; C9803; Q9967

== ENCOUNTER → 2023-10-30 07:54 | Outpatient (CLI) | payer MEDICARE, OTHER, SELFPAY ==
--- NOTE | 2023-10-30 | DI.RAD.S_ITS ---
Bone Density Report Name: DAFNE COREAS Age: 68 Sex: Female Ethnicity: Date of : 1955 Indication: postmenopausal; screening for osteoporosis; Referring Provider: JIMMY ROBIN Study: Bone densitometry was performed. Exam Date: October 30, 2023 Accession number: [id number] Bone Density: Region BMD T-score Z-score Classification AP Spine(L1-L4) 0.935 -1.0 0.9 Normal Femoral Neck (Left) 0.768 -0.7 0.9 Normal Total Hip (Left) 0.858 -0.7 0.6 Normal Femoral Neck (Right) 0.711 -1.2 0.4 Osteopenia Total Hip (Right) 0.840 -0.8 0.5 Normal Total Hip Mean 0.849 -0.8 0.6 Normal World Health Organization criteria for BMD impression classify patients as: Normal (T-score at or above -1.0), Osteopenia (T-score between -1.0 and -2.5), or Osteoporosis (T-score at or below -2.5). 10-year Fracture Risk(1): Major Osteoporotic Fracture 4.6% Hip Fracture 0.5% Reported Risk Factors: [place] (), Neck BMD=0.711, BMI=23.6 (1) FRAX(R) Version 3.08. Fracture probability calculated for an untreated patient. Fracture probability may be lower if the patient has received treatment. Previous Exams: -- Region Exam Age BMD T-score BMD Change BMD Change Date g/cm2 vs Baseline vs Previous -- AP Spine (L1-L4) 10/30/2023 68 0.935 -1.0 -0.026 (-2.7%)# -0.026 (-2.7%)# 06/20/2006 51 0.961 -0.8 Total Hip(Left) 10/30/2023 68 0.858 -0.7 -0.177 (-17.1%)# -0.177 (-17.1%)# 06/20/2006 51 1.036 0.8 Total Hip(Right) 10/30/2023 68 0.840 -0.8 -0.150 (-15.2%)# -0.150 (-15.2%)# 06/20/2006 51 0.990 0.4 -- *Denotes significance at 95% confidence level, LSC for AP Spine = 0.022 g/cm2, LSC for Total Hip = 0.027 g/cm2 # Denotes dissimilar scan types or analysis methods Impression: The patient has low bone mass, based on the Right Femoral Neck T-score. The patient has an estimated ten-year risk of hip fracture of 0.5% and an estimated ten-year risk of major fracture of 4.6%, based on the WHO FRAX algorithm. No significant bone loss was observed. Discussion: BONE DENSITY IS LOW AT ONE OR MORE SKELETAL SITES. This patient's lowest T-score is low at one or more skeletal sites. It meets the World Health Organization's (WHO) criteria for low bone mass (T-score between -1.0 and -2.5). The patient's 10-year risk of fracture as calculated by FRAX is less than the threshold where pharmacological therapy is recommended by the National Osteoporosis Foundation (NOF). However, all treatment decisions require clinical judgment and consideration of individual patient factors, including patient preferences, comorbidities, previous drug use, risk factors not captured in the FRAX model (e.g., frailty, falls, vitamin D deficiency, increased bone turnover, interval significant decline in bone density) and possible under or overestimation of fracture risk by FRAX. The patient should follow a healthful lifestyle (good nutrition with adequate calcium and vitamin D, and appropriate weight-bearing exercise). Follow-Up: Consider repeating this study in 2 to 3 years to reassess this patient's status, or sooner if there is some new clinical indication. Reported by: OSMEL BEST M.D. on 10/30/2023 9:58:00 AM.
--- NOTE | 2023-10-30 | DI.MG.S_ITS ---
BILATERAL DIGITAL SCREENING MAMMOGRAM 3D/2D WITH CAD: 10/30/2023 CLINICAL: Routine screening. Family history of breast cancer. Comparison is made to exams dated: 09/07/2020 mammogram - [facility], 12/03/2018 mammogram, and 11/20/2017 mammogram - [facility]. Both breasts are heterogeneously dense, which may obscure small masses (category c / 51-75% glandular tissue). Current study was also evaluated with a Computer Aided Detection (CAD) system. No significant masses, calcifications, or other findings are seen in either breast. There has been no significant interval change. IMPRESSION: NEGATIVE There is no mammographic evidence of malignancy. A 1 year screening mammogram is recommended. Based on the Tyrer Cuzick model (a risk assessment model) the patient's lifetime risk is 15.5% and her 10 year risk is 8.0%. According to the ACR, ACS, and NCCN guidelines, an annual breast MRI exam along with mammogram is recommended if the patient's lifetime risk is 20% or greater. This exam was interpreted at Station ID: [id number]. NOTE: For mammograms, a report in lay terms will be sent to the patient. Approximately 15% of breast malignancies will not be visualized mammographically. In the management of a palpable breast mass, a negative mammogram must not discourage biopsy of a clinically suspicious lesion. Electronically Signed By: Kelton valencia/homar:10/30/2023 14:08:18 letter sent: Normal Exam ACR BI-RADS Category 1: Negative [id number]
== END ==
LOC: MAMMO 07:56
PROVIDERS: PCP Physician Assistant; Referring Provider Physician Assistant; Visit Provider Physician Assistant
DX: Z12.31 Encounter for screening mammogram for malignant neoplasm of breast (principal); R92.333 Mammographic heterogeneous density, bilateral breasts; M85.851 Other specified disorders of bone density and structure, right thigh; N95.8 Other specified menopausal and perimenopausal disorders; Z80.3 Family history of malignant neoplasm of breast
CPT/HCPCS: 77063; 77067; 77080

== ENCOUNTER → 2024-11-11 16:51 | Outpatient (CLI) | payer MEDICARE, OTHER, SELFPAY ==
--- NOTE | 2024-11-11 16:54 | DI.MG.S_ITS ---
MM screening mammo BI: 11/11/2024. BI-RADS: 1 CLINICAL: 69-year old female for bilateral screening mammogram. Tyrer-Cuzick lifetime risk of 3.4%. No personal or first-degree family history of breast cancer. PRIOR EXAMS 10/30/2023, 09/07/2020, 12/03/2018. MAMMOGRAPHY TECHNIQUE: 2D and 3D (tomosynthesis) digital mammographic views obtained, with additional images as needed for full coverage. Current study was also evaluated with a Computer Aided Detection (CAD) system. DENSITY C. The breasts are heterogeneously dense, which may obscure small masses. MAMMOGRAPHY FINDINGS Bilateral: No suspicious mass, asymmetry, microcalcification, or other abnormality seen. IMPRESSION: * No evidence of malignancy. RECOMMENDATIONS Bilateral * Annual screening mammography. OVERALL ASSESSMENT CATEGORY BI-RADS-1: Negative. The [employer] recommends annual screening mammography beginning at age 40 for women with average risk of breast cancer. ELECTRONICALLY SIGNED: Jessica Self M.D. on 11/12/2024 at 01:37:19 PM PT Interpreting Station ID: [id number]
== END ==
PROVIDERS: PCP Student in an Organized Health Care Education/Training Program; Referring Provider Student in an Organized Health Care Education/Training Program; Visit Provider Student in an Organized Health Care Education/Training Program
DX: Z12.31 Encounter for screening mammogram for malignant neoplasm of breast (principal); R92.333 Mammographic heterogeneous density, bilateral breasts
CPT/HCPCS: 77063; 77067